=== PATIENT | male | born 1965 | race Caucasian/White ===

== ENCOUNTER → 2017-02-19 | Outpatient (CLI) | payer BC ==
[2017-02-19 08:37] LABS: CHLORIDE,CL 99 mmol/L (98-110); SODIUM,NA 134 mmol/L (136-146)
== END ==
LOC: MW.CHFP 07:42
PROVIDERS: ATTEND Emergency Medicine
DX: E11.9 Type 2 diabetes mellitus without complications (principal)
CPT/HCPCS: 36415; 80048; 80061; 82044; 83036

== ENCOUNTER 2023-04-19 03:35 | Inpatient (IN) | payer BC ==
[2023-04-19] MEDS ORDERED: Albuterol/Ipratropium 3.0-0.5 MG/3 ML Neb Soln NEB ONE (03:53)
[2023-04-19 04:07] LABS: BASOPHILS PERCENT AUTO 0.1 % (0.0-1.5); EOSINOPHILS ABSOLUTE AUTO 0.1 K/uL (0.0-0.7); EOSINOPHILS PERCENT AUTO 0.4 % (0.0-7.0); HEMATOCRIT 42.2 % (38.0-50.0); HEMOGLOBIN 14.5 g/dL (13.0-17.0); LYMPHOCYTES ABSOLUTE AUTO 1.5 K/uL (0.6-2.4); LYMPHOCYTES PERCENT AUTO 8.1 % (16.0-40.0); MEAN CORPUSCULAR HEMOGLOBIN 30.9 pg (27.0-32.0); MEAN CORPUSCULAR HGB CONC 34.4 g/dL (31.0-37.0); MEAN CORPUSCULAR VOLUME 89.8 fL (80.0-98.0); MONOCYTES ABSOLUTE AUTO 0.9 K/uL (0.0-0.8); NEUTROPHILS ABSOLUTE AUTO 15.6 K/uL (1.4-5.7); NEUTROPHILS PERCENT AUTO 86.4 % (48.0-80.0); PLATELET COUNT,PLT 356 K/uL (150-400); WHITE BLOOD CELL COUNT,WBC 18.08 K/uL (4.0-11.0)
[2023-04-19] MEDS ORDERED: Azithromycin 500 MG in Sodium Chloride 0.9% 250 ML IV ONE (04:21)
[2023-04-19] MEDS ORDERED: cefTRIAXone 1 GM in Sodium Chloride 0.9% 50 ML IV ONE (04:21)
[2023-04-19] MEDS ORDERED: Cefepime 2 GM Vial IVPUSH ONE (04:23)
[2023-04-19] MEDS ORDERED: Water For Injection, Sterile 10 ML SDV INJECT ONE (04:35)
[2023-04-19] MEDS ORDERED: Water For Injection, Sterile 20 ML ONE (04:40)
[2023-04-19 04:47] LABS: INR 1.02 (0.86-1.11); PTT,PARTIAL THROMBOPLSTIN TIME 26.3 SEC (23.9-30.7)
[2023-04-19 05:01] LABS: A/G RATIO 1.1 (0.9-1.6); ALBUMIN 3.3 g/dL (3.4-5.0); BILIRUBIN TOTAL 0.7 mg/dL (0.2-1.0); CALCIUM 8.5 mg/dL (8.5-10.1); CARBON DIOXIDE,CO2 26.1 mmol/L (21.0-32.0); MAGNESIUM 1.7 mg/dL (1.8-2.4); PROTEIN TOTAL,TP 6.4 g/dL (6.4-8.2)
[2023-04-19 05:04] LABS: LACTIC ACID 0.8 mmol/L (0.4-2.0)
[2023-04-19] MEDS ORDERED: Iopamidol 755 MG/ML 500 ML Multipack Bottle IVPUSH ONE (05:17)
[2023-04-19 05:24] LABS: APPEARANCE,URINE CLEAR; BILIRUBIN,URINE NEGATIVE (NEGATIVE); COLOR,URINE YELLOW; GLUCOSE,URINE NEGATIVE (NEGATIVE); KETONES,URINE TRACE mg/dL (NEGATIVE); LEUKOCYTE ESTERASE,URINE NEGATIVE (NEGATIVE); NITRITE,URINE NEGATIVE (NEGATIVE); OCCULT BLOOD,URINE NEGATIVE (NEGATIVE); PH,URINE 6.5 (5.0-8.0); PROTEIN,URINE NEGATIVE (NEGATIVE)
[2023-04-19] MEDS ORDERED: Polyethylene Glycol 3350 Powder 17 GM Packet PO PRN (07:03)
[2023-04-19] MEDS ORDERED: Sodium Chloride 0.9% 10 ML Syringe FLUSH PRN (07:03)
[2023-04-19] MEDS ORDERED: Ondansetron 4 MG/2 ML SDV IVPUSH PRN (07:03)
[2023-04-19] MEDS ORDERED: Albuterol/Ipratropium 3.0-0.5 MG/3 ML Neb Soln NEB PRN (07:03)
[2023-04-19] MEDS ORDERED: Sodium Chloride 0.9% 2.5 ML Syringe FLUSH PRN (07:03)
[2023-04-19] MEDS ORDERED: 50% Dextrose in Water 50 ML Syringe IVPUSH PRN (07:09)
[2023-04-19] MEDS ORDERED: Glucagon,Human Recombinant 1 MG Vial IM PRN (07:09)
[2023-04-19] MEDS: Insulin Aspart 100 Units/ML 3 ML Pen SUBCUT SCH ×3 (09:15→17:11)
[2023-04-19] MEDS: Insulin Glargine,Hum.Rec.Anlog 100 UNIT/ML 3 ML Pen SUBCUT SCH (09:30)
[2023-04-19] MEDS: Acetaminophen 325 MG Tab PO PRN ×2 (09:35→14:21)
[2023-04-19] MEDS: Albuterol/Ipratropium 3.0-0.5 MG/3 ML Neb Soln NEB SCH ×3 (11:12→23:30)
[2023-04-19] MEDS ORDERED: Acetaminophen/Butalbital/Caffeine 325-50-40 MG Tab PO ONE (14:56)
[2023-04-19] MEDS ORDERED: Benzocaine/Cetylpyridinium/Menthol Lozenge MUCMEM PRN (14:56)
[2023-04-19] MEDS ORDERED: Melatonin 3 MG Tab PO PRN (22:53)
[2023-04-19] MEDS: Acetaminophen/Butalbital/Caffeine 325-50-40 MG Tab PO PRN (23:30)
[2023-04-20 06:12] LABS: HEMATOCRIT 36.6 % (38.0-50.0); HEMOGLOBIN 12.2 g/dL (13.0-17.0); MEAN CORPUSCULAR HEMOGLOBIN 30.7 pg (27.0-32.0); MEAN CORPUSCULAR HGB CONC 33.3 g/dL (31.0-37.0); PLATELET COUNT,PLT 265 K/uL (150-400); RED BLOOD CELL COUNT 3.98 M/uL (4.50-5.90); WHITE BLOOD CELL COUNT,WBC 7.32 K/uL (4.0-11.0)
[2023-04-20] MEDS: cefTRIAXone 2 GM in Sodium Chloride 0.9% 100 ML IV SCH (06:17)
[2023-04-20 06:44] LABS: CALCIUM 8.4 mg/dL (8.5-10.1); CARBON DIOXIDE,CO2 26.1 mmol/L (21.0-32.0); CREATININE 0.8 mg/dL (0.8-1.3); POTASSIUM,K 3.8 mmol/L (3.5-5.1)
[2023-04-20] MEDS: Azithromycin 500 MG in Sodium Chloride 0.9% 250 ML IV SCH (06:58)
[2023-04-20] MEDS: Insulin Aspart 100 Units/ML 3 ML Pen SUBCUT SCH ×3 (07:40→16:13)
[2023-04-20] MEDS: Insulin Glargine,Hum.Rec.Anlog 100 UNIT/ML 3 ML Pen SUBCUT SCH (08:00)
[2023-04-20] MEDS: Aspirin 81 MG Tab.EC PO SCH (08:01)
[2023-04-20] MEDS: Enoxaparin 40 MG/0.4 ML Syringe SUBCUT SCH (08:01)
[2023-04-20] MEDS ORDERED: VANCOmycin 1.5 GM/300 ML 1.5 GM in Premix Bag 1 BAG IV ONE (10:00)
[2023-04-21] MEDS: cefTRIAXone 2 GM in Sodium Chloride 0.9% 100 ML IV SCH (06:18)
[2023-04-21] MEDS: Acetaminophen/Butalbital/Caffeine 325-50-40 MG Tab PO PRN (06:44)
[2023-04-21] MEDS: Azithromycin 500 MG in Sodium Chloride 0.9% 250 ML IV SCH (06:47)
[2023-04-21 06:49] LABS: HEMATOCRIT 41.5 % (38.0-50.0); MEAN CORPUSCULAR HEMOGLOBIN 30.9 pg (27.0-32.0); MEAN CORPUSCULAR HGB CONC 33.7 g/dL (31.0-37.0); MEAN CORPUSCULAR VOLUME 91.6 fL (80.0-98.0); PLATELET COUNT,PLT 194 K/uL (150-400); RED BLOOD CELL COUNT 4.53 M/uL (4.50-5.90)
[2023-04-21 07:11] LABS: CALCIUM 8.4 mg/dL (8.5-10.1); CARBON DIOXIDE,CO2 28.1 mmol/L (21.0-32.0); CREATININE 0.8 mg/dL (0.8-1.3); POTASSIUM,K 4.1 mmol/L (3.5-5.1)
[2023-04-21] MEDS: Insulin Aspart 100 Units/ML 3 ML Pen SUBCUT SCH ×2 (07:47→12:08)
[2023-04-21] MEDS: Insulin Glargine,Hum.Rec.Anlog 100 UNIT/ML 3 ML Pen SUBCUT SCH (08:00)
[2023-04-21] MEDS: Aspirin 81 MG Tab.EC PO SCH (08:48)
[2023-04-21] MEDS: Enoxaparin 40 MG/0.4 ML Syringe SUBCUT SCH (08:49)
[2023-04-21] MEDS ORDERED: DAPTOmycin 500 MG Vial IV SCH (09:15)
[2023-04-21] MEDS ORDERED: DAPTOMYCIN IV SCH (09:30)
[2023-04-21] MEDS ORDERED: SODIUM CHLORIDE 0.9% IV SCH (09:30)
== END 2023-04-21 12:48 | disposition home or self-care (01) | DRG 139 ==
LOC: MW.ED 03:35 → MW.MS 06:35
PROVIDERS: ADMIT Family Medicine; ATTEND Family Medicine
DX: J13 Pneumonia due to Streptococcus pneumoniae (principal); R04.2 Hemoptysis; E87.1 Hypo-osmolality and hyponatremia; E11.65 Type 2 diabetes mellitus with hyperglycemia; F10.10 Alcohol abuse, uncomplicated; K85.91 Acute pancreatitis with uninfected necrosis, unspecified; Z79.899 Other long term (current) drug therapy; Z79.82 Long term (current) use of aspirin; Z79.4 Long term (current) use of insulin
CPT/HCPCS: 36415; 71045; 71045-26; 71275; 71275-26; 80048; 80053; 80202; 81003; 82947; 83605; 83690; 83735; 83880; 84484; 85025; 85027; 85610; 85730; 87040; 87077; 87154; 87186; 87899; 93005; 93010; 96365; 96375; 99285; 99285-25; A9270-GY; J0456; J0692; J0696; J0878; J1650; J1815-GY; J3370; J3490; J7050; J7620-GY; Q9967; U0002